=== PATIENT | female | born 1985 | race Caucasian/White ===

== ENCOUNTER → 2018-12-18 | Outpatient (CLI) | payer OTHER | LOC: COL.RAD 09:45 | DX: J34.1 Cyst and mucocele of nose and nasal sinus (principal); Z20.3 Contact with and (suspected) exposure to rabies | CPT/HCPCS: A9585 ==

== ENCOUNTER 2018-12-28 08:25 | Outpatient (CLI) | payer OTHER ==
[2018-12-28] VITALS (7 sets, daily range): BP systolic 95–124; BP diastolic 59–78; PULSE 64–86
[~2018-12-28] VITALS: Ht 152.4 cm; Wt 71.3 kg
[~2018-12-28 08:25] MED LIST: B-121000 MCG PO; MAG-OX 400400 MG/TAB PO; MOTRIN 200200 MG/TAB PO; OGESTREL PO; RIBOFLAVIN400 MG PO; VITAMIN D 50,1.25 MG PO
--- NOTE | 2018-12-28 10:34 | NUR ---
Pt arrived post procedure,report from Arley Kerr.
[2018-12-28 11:03] LABS: GLUCOSE,CSF 55 mg/dL (40-70); TOTAL PROTEIN,CSF 24 mg/dL (15-45)
[2018-12-28 12:24] LABS: CSF APPEARANCE CLEAR; CSF COLOR COLORLESS
[2018-12-28 12:25] LABS: CSF MONONUCLEAR 0 % (70-100); CSF POLYMORPHONUCLEAR 0 % (0-6); CSF RBC 0 /mm3 (0-0)
--- NOTE | 2018-12-28 12:34 | NUR ---
Discharge instrutions given to pt.pt verbalizes understanding.
--- NOTE | 2018-12-28 12:35 | NUR ---
Pt escorted out by this nurse.
[2019-01-01 06:42] LABS: WEST NILE VIRUS IGM 1.69 Index (())
[2019-01-02 14:02] LABS: ALBUMIN CSF 14.8 mg/dL (<=27.0)
[2019-01-02 14:06] LABS: CSF IGG/ALBUMIN 0.14 (<=0.21); CSF,IGG 2.1 mg/dL (<=8.1)
[2019-01-02 14:16] LABS: ALBUMUN SERUM 3380 mg/dL (()); CSF-IGG INDEX 0.47 (<=0.85); IGG,SERUM 1030 mg/dL (())
== END 2018-12-28 13:08 | disposition home or self-care (01) ==
LOC: COL.RAD 08:25
PROVIDERS: Psychiatry & Neurology Neurology
DX: Z20.3 Contact with and (suspected) exposure to rabies (principal); R51 Headache; W55.81XA Bitten by other mammals, initial encounter